=== PATIENT | male | born 1995 | race Caucasian/White ===

== ENCOUNTER 2017-07-18 09:23 | Day surgery (SDC) | payer BC ==
[~2017-07-18] VITALS: Ht 185.4 cm; Wt 89.5 kg
[2017-07-18] VITALS (13 sets, daily range): BP systolic 128–165; BP diastolic 70–93; PULSE 61–102; RESP 14–22; Ht 185.4 cm; Wt 89.5 kg
[2017-07-18] MEDS ORDERED: CEFAZOLIN 1 GM INJ ONE (09:33)
[2017-07-18] MEDS ORDERED: ROPIVACAINE 0.5 % 30 ML VIAL ONE (09:33)
[2017-07-18] MEDS ORDERED: ROCURONIUM 50 MG INJ ONE (09:33)
[2017-07-18] MEDS ORDERED: NEOSTIGMINE 3 MG/3 ML SYRINGE ONE (09:33)
[2017-07-18] MEDS ORDERED: MIDAZOLAM 1 MG/ML 2 ML INJ ONE ×2 (09:33→10:23)
[2017-07-18] MEDS ORDERED: ONDANSETRON 4 MG INJ ONE ×2 (09:33→10:23)
[2017-07-18] MEDS ORDERED: DEXAMETHASONE 4 MG/ML 1 ML INJ ONE ×2 (09:33→10:23)
[2017-07-18] MEDS ORDERED: FENTAnyl 50 MCG/ML VIAL ONE ×4 (09:33→13:03)
[2017-07-18] MEDS ORDERED: PROPOFOL 20 ML ONE ×2 (09:33→10:23)
[2017-07-18] MEDS ORDERED: POLYMYXIN/BACITRACIN 1L IRRIG ONE (09:48)
[2017-07-18] MEDS ORDERED: POVIDONE IODINE 10% 28.4 GM OINT ONE (09:48)
[2017-07-18] MEDS ORDERED: LIDOCAINE 2% (SDV) 5 ML INJ ONE (10:23)
[2017-07-18] MEDS ORDERED: PROPOFOL 100 ML ONE (10:50)
[2017-07-18] MEDS ORDERED: ONDANSETRON 4 MG INJ IV PRN ×2 (12:30→16:00)
[2017-07-18] MEDS ORDERED: TRIMETHOBENZAMIDE 100 MG/ML VIAL IM PRN (12:30)
[2017-07-18] MEDS ORDERED: DIPHENHYDRAMINE 50 MG INJ IV PRN (12:30)
[2017-07-18] MEDS ORDERED: LABETALOL HCL 20MG INJ IV PRN (12:30)
[2017-07-18] MEDS ORDERED: EPHEDrine SULFATE 50 MG/5 ML SYG IV PRN (12:30)
[2017-07-18] MEDS ORDERED: ALBUTEROL 0.083% (NEB) 2.5 MG/3 ML AMP HHN PRN (12:30)
[2017-07-18] MEDS ORDERED: MIDAZOLAM 1 MG/ML 2 ML INJ IV PRN (12:30)
[2017-07-18] MEDS ORDERED: FENTAnyl 50 MCG/ML VIAL IV PRN ×3 (12:30)
[2017-07-18] MEDS ORDERED: HYDROmorphONE (0.2 MG/ML) 10ML SYG IV PRN ×3 (12:30)
[2017-07-18] MEDS ORDERED: IPRATROPIUM (NEB) 0.5 MG/2.5 ML AMP HHN PRN (12:30)
[2017-07-18] MEDS ORDERED: MEPERIDINE 25 MG INJ IV PRN (12:30)
[2017-07-18] MEDS ORDERED: hydrALAzine 20 MG INJ IV PRN (12:30)
[2017-07-18] MEDS ORDERED: OXYCODONE/ACETAMINOPHEN (5/325) TAB PO PRN ×4 (12:30→16:00)
[2017-07-18] MEDS ORDERED: KETOROLAC 30 MG INJ ONE ×2 (12:32→14:26)
--- NOTE | 2017-07-18 15:24 | HPN ---
Date/Time of Note Date/Time of Note DATE: 07/18/17 TIME: 15:24 Interval H&P Admission Note Pt. seen H&P reviewed: No system changes LAMONT MCRAE MD Jul 18, 2017 15:24
--- NOTE | 2017-07-18 15:30 | OPPN ---
Date/Time of Note Date/Time of Note DATE: 07/18/17 TIME: 15:25 Operative Report Preoperative Diagnosis Left navicular stress fracture, Anterior ankle osteophytes and loose bodies Postoperative Diagnosis same Operation/Procedure Performed 1. ORIF left navicular stress fracture 2. L Iliac crest bone autograft harvest 3. Autograft placement L navicular stress fracture 4. Excision of loose bodies and osteophytes anterior ankle Surgeon see signature line assistant news director MD Lisset Anesthesia: general Estimated blood loss: 10 - 50 ml's Transfusion Required none Specimen none Grafts/Implants none Complications none LAMONT MCRAE MD Jul 18, 2017 15:30
[2017-07-18] MEDS ORDERED: SOD CHLORIDE 0.9% 1,000 ML IV SCH (15:54)
[2017-07-18] MEDS ORDERED: morphine 2 MG INJ IV PRN (16:00)
--- NOTE | 2017-07-18 19:35 | OPR ---
DATE OF OPERATION: 07/18/2017 PREOPERATIVE DIAGNOSES: 1. Stress fracture of the left navicular in the foot. 2. Osteophytes of distal tibia. 3. Loose bodies in the left ankle. POSTOPERATIVE DIAGNOSES: 1. Oblique stress fracture of the left navicular, completely through from the dorsal to the plantar surface of the navicular. 2. Osteophytes of the distal tibia, including the medial malleolus. 3. Multiple osteochondral loose bodies, each greater than 1 cm. OPERATION PERFORMED: 1. Open reduction and internal fixation of the left navicular fracture with one 4.0 and one 4.5 AO cannulated screw. 2. Open excision of osteophytes of the left ankle. 3. Removal of loose bodies in the left ankle and anterior talus. 4. Addition of augment to the iliac crest bone graft. 5. Iliac crest bone graft to the navicular mixed with augment. 6. Use of fluoroscopy to verify the position and alignment of the fracture and of the guide pins an d screws. 7. Short-leg cast. Very complex and difficult procedure because it was very difficult initially to find the fracture li ne even though we had it marked preoperatively via a CAT scan. It was also difficult to debride the oblique area of the stress fracture. Because of this, an additional 60 minutes of time was spent, (22). SURGEON: Lamont Siddiqui MD MACHINE OPERATIONS SUPERVISOR: Emil Darling. ANESTHESIA: General with a popliteal block. TOURNIQUET TIME: 130 minutes. DESCRIPTION OF PROCEDURE: The patient was taken to the operating room and placed in supine. Satisf actory popliteal block was given, satisfactory general anesthesia was administered, 2 grams of Ancef given intravenously. The left lower leg and foot and iliac crest were prepped and draped in the us ual manner. A sterile tourniquet was inserted onto the left proximal thigh. Attention was turned t o the iliac crest first. An incision was made over the iliac crest by pulling the skin up. An Aspirex Plus cannula was inser garret onto the iliac crest and impacted with a mallet. We then pulled out the obturator and using mul tiple angles and multiple passes, sleeves of bone graft were obtained until we had 3 good sleeves. The wounds were then irrigated with antibiotic solution. The wounds were closed with 3-0 undyed Jimmy ryl and 4-0 subcuticular Monocryl. Steri-Strips were applied as well as a compression dressing. Gloves were changed. All new instruments were used. Our attention was then turned to the navicular . Preoperatively today in the morning, he was taken to the [facility] CT scanner and under dir ect vision, they marked on the skin exactly where the fracture was on the CT scan. We then made an incision proximal and distal along this line, dissection carried down to subcutaneous tissue. Extre me caution was made to avoid injuring neurovascular bundle. We elevated the neurovascular bundle ou t laterally. We then opened the capsule and periosteum along the navicular and the area of the tahddeus cular fracture. Several osteochondral loose bodies were revealed and removed. The talar neck osteo phytes were removed. We went up into the ankle joint. The ankle itself was smooth and glistening. Articular cartilage was normal. There were osteophytes along the medial malleolus and distal tibia anteromedially. These were removed with a rongeur and smoothed with a power bur. The wound was ir rigated repeatedly with antibiotic solution. Using the fluoroscope, we marked with a needle where w nael felt the stress fracture was. We used subtraction technique on the CT scan to verify that was the correct area. Once we were comfortable we were in the right area, we used very small curettes and rongeur to debride the area and try to fall into the area of the fracture. Multiple drill holes wer e made with 0.045 K-wire in the area of the fracture from dorsal to plantar. The bone graft was the n mixed with augment from [employer] to facilitate quicker and better healing. A small incision was made to the border laterally of the navicular. Dissection carried down to subcutaneous tissue. The superficial peroneal was preoperatively marked. We retracted it laterally with the extensor t endons. We went down and opened the capsule of the navicular. The guide pin from the 4.5 AO cannul ated screw was inserted on a more plantar surface and angled from dorsal lateral to plantar medial. We used a 4.5 cannulated pin to increase the surface area of the fracture since it went all the way down to the plantar surface. It was then checked in the AP and lateral planes and was in excellent position. It was drilled and tapped, and a 4.5 partially threaded AO screw was inserted. Excellen t fixation was obtained. Parallel to this, a more dorsal lateral pin was placed and brought out ninoska ntar medial. Both pins initially were brought out until we could palpate and then pulled back. We measured exactly the length, drilled and tapped the more dorsal screw and then inserted a 4.0 AO can nulated screw. Excellent fixation was obtained in both. Final fluoroscopic view showed excellent p osition of the screws in AP, oblique and lateral planes. The bone graft mixed with augment was then inserted and impacted in the area of the fracture. The c apsule and periosteum were closed with running 3-0 undyed Vicryl. The rest of the ligament was inse rted over the fracture underneath the periosteum. The wound was irrigated with antibiotic solution. The tourniquet was released. Bleeders were coagulated. The subcutaneous tissue was closed with a few 3-0 undyed Vicryl and skin with 4-0 black nylon in both our long wound and then our short wound . At the end of procedure, the pulse was brisk and we retracted it out of the field and it looked t o be completely safe, as did the entire neurovascular bundle. A compression dressing was then appli ed as well as a short-leg cast in neutral position. A compression dressing was then reapplied over the iliac crest with Tegaderm. Cast was then split i n the recovery room and spread a little bit. At the end of the procedure, sponge and needle count w ere correct. The patient tolerated the procedure well and was taken to the recovery room. Dictated By: LAMONT ONEILL/ELENA Conf#: [id number] DID#: [id number]
--- NOTE | 2017-07-19 16:46 | RADRPT ---
PROCEDURE: Intraoperative imaging of the left foot with fluoroscopy. CLINICAL INDICATION: Left foot pain. Intraoperative. TECHNIQUE: Images of the left foot were obtained in the operating room with an image intensifier. No radiologist was in attendance. Fluoroscopy time is 121 seconds and 8 images were obtained. COMPARISON: No prior study is available for comparison. FINDINGS: Images demonstrate surgical instruments overlying the left foot and 2 screws in the navicular. IMPRESSION: 1. Intraoperative imaging of the left foot. RPTAT: QQ .Sebastian Hurst MD, Date Time Electronically viewed and signed by .Sebastian Hurst MD, on 07/19/2017 16:46 .R/
--- NOTE | 2017-07-25 22:47 | OPR ---
DATE OF OPERATION: 07/18/2017 ADDENDUM POCKET ASSEMBLER ORTHOPEDIC SURGEON: During the procedure, an diploma dental assistant orthopedic surgeon was used at my request. The diploma dental assistant helped with retraction and access to the hip and the navicular. In addition , the diploma dental assistant helped with the open reduction and internal fixation of the fracture and debridement of the ankle. Without a skilled orthopedic surgeon assisting me, this could not have been performe d; therefore, should be compensated appropriately. Dictated By: LAMONT ONEILL/ELENA Conf#: [id number] DID#: [id number]
== END 2017-07-18 18:15 | disposition home or self-care (01) ==
LOC: SUR 09:23 → SDS 09:23 → SUR 18:15
PROVIDERS: ATTEND Orthopaedic Surgery
DX: S92.252D Displaced fracture of navicular [scaphoid] of left foot, subsequent encounter for fracture with routine healing (principal); X58.XXXD Exposure to other specified factors, subsequent encounter; M25.775 Osteophyte, left foot; M24.072 Loose body in left ankle
CPT/HCPCS: 28465; 73630; C1713; J0690; J1100; J1885; J2250; J2405; J2795; J3010; J2710